=== PATIENT | female | born 1955 | race Caucasian/White ===

== ENCOUNTER 2021-06-27 15:37 | Emergency (ER) | payer OTHER ==
[2021-06-27 15:43] VITALS: BMI 45.4
[2021-06-27 18:01] VITALS: BP 120/63; PULSE 72; TEMP 99
== END 2021-06-27 18:45 | disposition home or self-care (01) ==
LOC: JER 15:37
DX: E11.621 Type 2 diabetes mellitus with foot ulcer (principal); L97.529 Non-pressure chronic ulcer of other part of left foot with unspecified severity
CPT/HCPCS: 82962; 99283-25

== ENCOUNTER 2021-06-30 16:15 | Inpatient (IN) | payer OTHER ==
[2021-06-30 23:05] LABS: BASO % 0.4 % (0-2.0); EOS % 1.4 % (0-4.5); HEMATOCRIT 32.3 % (32.4-45.2); LYMPH % 32.5 % (8-40); MCH 28.7 pg (25.7-33.7); MCHC 33.9 g/dl (32.0-36.0); MEAN CELL VOLUME 84.6 fl (80-96); MEAN PLT VOLUME 8.1 fl (7.5-11.1); MONO % 8.6 % (3.8-10.2); NEUT % 57.1 % (42.8-82.8); PLATELET COUNT 178 10^3/uL (134-434); RBC 3.81 M/mm3 (3.60-5.2); RDW 13.8 % (11.6-15.6)
[2021-06-30 23:13] LABS: INR 1.12 (0.83-1.09); PROTHROMBIN TIME (PATIENT) 12.9 SEC (9.7-13.0)
[2021-06-30 23:30] LABS: ALBUMIN 3.1 g/dl (3.4-5.0); BLOOD UREA NITROGEN 14.8 mg/dL (7-18)
[2021-06-30 23:33] LABS: CREATININE 0.9 mg/dL (0.55-1.3)
[2021-06-30 23:34] LABS: BILIRUBIN,TOTAL 0.6 mg/dL (0.2-1)
[2021-07-01] MEDS ORDERED: INSULIN (NOVOLOG) ASPART 100 UNITS/ML 10ML VIAL SQ ONE (01:14)
[2021-07-01] MEDS: INSULIN (LEVEMIR) 100 UNITS/ML UNITS SQ SCH ×2 (08:23→23:10)
[2021-07-01] MEDS: INSULIN SLIDING SCALE (NOVOLOG) 1 VIAL SQ SCH ×4 (08:23→23:10)
[2021-07-01] MEDS: LOSARTAN POTASSIUM 25 MG TABLET PO SCH (11:11)
[2021-07-01] MEDS ORDERED: INSULIN (NOVOLOG) ASPART 100 UNITS/ML 10ML VIAL ONE ×2 (11:33→21:39)
[2021-07-01] MEDS: BACITRACIN 15 GM TUBE TOPICAL OINTMENT TP SCH (12:12)
[2021-07-01 13:06] VITALS: BMI 43.8
[2021-07-01] MEDS ORDERED: DIPHENOXYLATE 2.5/ATROPINE.025 1 COMBO TABLET PO PRN (15:58)
[2021-07-01] MEDS: AMINO ACIDS/PROTEIN HYDROLYS 30 ML LIQUID.PKT PO SCH ×2 (17:38→18:55)
[2021-07-01] MEDS: ACETAMINOPHEN 325 MG TABLET (FP) PO PRN (17:39)
[2021-07-01] MEDS: GABAPENTIN 100 MG CAPSULE PO SCH (23:10)
[2021-07-01] MEDS: ATORVASTATIN CA 80 MG TABLET (FP) PO SCH (23:10)
[2021-07-01] MEDS: HEPARIN NA (PORCINE) 5,000 UNITS/ML 1ML VIAL SQ SCH (23:10)
[2021-07-02] MEDS: INSULIN (LEVEMIR) 100 UNITS/ML UNITS SQ SCH ×3 (06:28→21:56)
[2021-07-02] MEDS: HEPARIN NA (PORCINE) 5,000 UNITS/ML 1ML VIAL SQ SCH ×3 (06:28→21:56)
[2021-07-02] MEDS: INSULIN SLIDING SCALE (NOVOLOG) 1 VIAL SQ SCH ×5 (06:29→21:56)
[2021-07-02] MEDS: AMINO ACIDS/PROTEIN HYDROLYS 30 ML LIQUID.PKT PO SCH ×2 (09:40→17:43)
[2021-07-02] MEDS: BACITRACIN 15 GM TUBE TOPICAL OINTMENT TP SCH (09:40)
[2021-07-02] MEDS: MULTIVITAMINS (DAILY MVI) TABLET (FP) PO SCH (09:41)
[2021-07-02] MEDS: LOSARTAN POTASSIUM 25 MG TABLET PO SCH (09:41)
[2021-07-02] MEDS: GABAPENTIN 100 MG CAPSULE PO SCH ×2 (09:41→21:56)
[2021-07-02] MEDS: PANTOPRAZOLE 40 MG TABLET PO SCH (09:41)
[2021-07-02] MEDS: ACETAMINOPHEN 325 MG TABLET (FP) PO PRN (17:43)
[2021-07-02] MEDS: ATORVASTATIN CA 80 MG TABLET (FP) PO SCH (21:56)
[2021-07-03] MEDS ORDERED: DOCUSATE SODIUM 100 MG CAPSULE (FP) PO PRN (03:51)
[2021-07-03] MEDS: HEPARIN NA (PORCINE) 5,000 UNITS/ML 1ML VIAL SQ SCH ×2 (06:34→15:42)
[2021-07-03] MEDS: INSULIN SLIDING SCALE (NOVOLOG) 1 VIAL SQ SCH ×2 (06:34→12:15)
[2021-07-03] MEDS: INSULIN (LEVEMIR) 100 UNITS/ML UNITS SQ SCH (06:35)
[2021-07-03] MEDS: ACETAMINOPHEN 325 MG TABLET (FP) PO PRN (06:40)
[2021-07-03] MEDS: AMINO ACIDS/PROTEIN HYDROLYS 30 ML LIQUID.PKT PO SCH (08:15)
[2021-07-03] MEDS: MULTIVITAMINS (DAILY MVI) TABLET (FP) PO SCH (10:16)
[2021-07-03] MEDS: GABAPENTIN 100 MG CAPSULE PO SCH (10:16)
[2021-07-03] MEDS: BACITRACIN 15 GM TUBE TOPICAL OINTMENT TP SCH (10:16)
[2021-07-03] MEDS: PANTOPRAZOLE 40 MG TABLET PO SCH (10:16)
[2021-07-03] MEDS: LOSARTAN POTASSIUM 25 MG TABLET PO SCH (10:16)
[2021-07-03] MEDS ORDERED: INSULIN (NOVOLOG) ASPART 100 UNITS/ML 10ML VIAL ONE (12:10)
[2021-07-03 14:45] VITALS: BP 151/69; PULSE 94; TEMP 97.6
[2021-07-03] MEDS ORDERED: SENNOSIDES 8.6MG TABLET (FP) PO SCH (22:00)
== END 2021-07-03 16:32 | DRG 638 ==
LOC: JER 16:15 → JERBED 07-01 00:04 → J8W 07-01 05:56
PROVIDERS: ADMIT Internal Medicine; ATTEND Internal Medicine
DX: E11.621 Type 2 diabetes mellitus with foot ulcer (principal); L97.528 Non-pressure chronic ulcer of other part of left foot with other specified severity; A52.16 Charcot's arthropathy (tabetic); E11.610 Type 2 diabetes mellitus with diabetic neuropathic arthropathy; I10 Essential (primary) hypertension; E11.65 Type 2 diabetes mellitus with hyperglycemia; E78.5 Hyperlipidemia, unspecified; Z59.00 Homelessness unspecified; Z79.4 Long term (current) use of insulin; Z89.511 Acquired absence of right leg below knee; Z89.422 Acquired absence of other left toe(s)
CPT/HCPCS: 36415; 80053; 80061; 82962; 83036; 84443; 85025; 85610; 85730; 93005; 93010; 97116-GP; 97162-GP; 99285-25; C9803-CS; J1644; U0003; U0005